=== PATIENT | female | born 1970 | race Two or more races ===

== ENCOUNTER 2022-04-12 12:31 | Emergency (ER) | payer MEDICARE, MEDICAID, SELFPAY ==
--- NOTE | ~2022-04-12 | CT_ITS ---
EXAMINATION: CT CHEST WITH IV CONTRAST CT ABDOMEN AND PELVIS WITH IV CONTRAST CLINICAL INFORMATION: 51-year-old female with history of weight loss and night sweats. COMPARISON: None TECHNIQUE: Multidetector CT imaging examination of the chest, abdomen and pelvis was performed with intravenous administration of 85 mL Omnipaque 350. Axial images are displayed at 0.6 mm and 5 mm slice thickness. Oral contrast was given. Coronal and sagittal reformatted images were generated at the technologist's workstation and submitted for review. This CT examination was performed using dose optimization techniques as appropriate, variously including the following: *Automated exposure control *Adjustment of mA and/or kV according to patient size (this includes techniques or standardized protocols for targeted exams where dose is matched to indication/reason for exam; i.e. extremities or head) *Use of iterative reconstruction technique DLP: 1391 mGy-cm FINDINGS: CHEST - LUNGS AND PLEURA: Minimal centrilobular emphysema. No evidence of pulmonary nodule, mass or interstitial disease. No pleural effusion. MEDIASTINUM/LOWER NECK: The heart size is normal. No pericardial effusion. Pulmonary arteries and thoracic aorta are normal in caliber. There is no coronary artery calcification. The esophagus and thyroid gland are unremarkable. LYMPHATICS: No pathologic sized lymph nodes. CHEST WALL/BONES: No chest wall mass. Thoracic vertebra have normal density, height and alignment. No suspicious osseous lesion within the thorax. ABDOMEN AND PELVIS - HEPATOBILIARY: Liver has normal size and contour. 1.1 cm hypodense focus in the left lobe adjacent to the falciform ligament might represent focal steatosis, however, it has a more rounded configuration than would be expected for steatosis and has attenuation of 40 Hounsfield units. Liver ultrasound follow-up might be helpful for further characterization. There is a small, 0.5 cm simple cyst in the left lobe. Gallbladder is normal. No dilated bile ducts. PANCREAS: No edema, mass or pancreatic ductal dilatation. SPLEEN: Normal. ADRENAL GLANDS: Normal. KIDNEYS AND URETERS: Kidneys are normal in size. 0.3 cm calyceal stone of the right lower pole. No hydronephrosis. 2.5 cm simple cortical cyst of the left upper pole. No renal imaging follow-up is recommended for a simple cyst. The ureters are unremarkable. BOWEL AND PERITONEUM: No dilated loops of bowel. The appendix is normal. No overt bowel wall thickening. No mesenteric fat stranding, ascites or pneumoperitoneum. ABDOMINAL WALL: Unremarkable. VESSELS: Mild atherosclerosis of the abdominal aorta without aneurysm. LYMPH NODES: No pathologic sized lymph nodes in the abdomen or pelvis. No inguinal lymphadenopathy. BLADDER AND PELVIC VISCERA: Urinary bladder is normal. Hysterectomy. No adnexal mass or pelvic free fluid. Multiple phleboliths are present within the lower pelvis. MUSCULOSKELETAL: Lumbar vertebra have normal density, height and alignment. Pelvic bones and proximal femurs are intact. No suspicious lytic or osteoblastic lesions. CT/CT abdomen pelvis w IV con IMPRESSION: * No evidence of pulmonary mass. No evidence of lymphadenopathy in the chest, abdomen or pelvis. * Indeterminate 1.1 cm hypodense focus in the left hepatic lobe is seen adjacent to the falciform ligament. This is likely benign, but is not a simple liver cyst and is not convincing focal steatosis. Liver ultrasound follow-up might be helpful further characterization. However, if unable to characterize with ultrasound, a dynamic liver MRI performed without and with IV contrast may be pursued in this patient with history of weight loss. * 0.3 cm stone of the lower pole of the right kidney.
--- NOTE | ~2022-04-12 | CT_ITS ---
EXAMINATION: CT HEAD WITHOUT CONTRAST CLINICAL INFORMATION: Weight loss and night sweats. Dizziness. COMPARISON: None TECHNIQUE: Contiguous axial imaging was performed from the skull base to vertex without intravenous administration of contrast. This CT examination was performed using dose optimization techniques as appropriate, variously including the following: *Automated exposure control *Adjustment of mA and/or kV according to patient size (this includes techniques or standardized protocols for targeted exams where dose is matched to indication/reason for exam; i.e. extremities or head) *Use of iterative reconstruction technique DLP: 1391 mGy-cm (total dose, for CT exams of the head, chest, abdomen and pelvis) FINDINGS: The brain parenchyma has normal attenuation. The burgess-white matter differentiation is well preserved. No evidence of an acute major vascular territory infarction. No intracranial hemorrhage, extra-axial fluid collection, focal mass effect or midline shift. The ventricles have normal size and configuration; no hydrocephalus. The brainstem and cerebellum have a normal appearance. The cerebellar tonsils are in normal position. The calvarium is intact. The visualized paranasal sinuses, mastoid air cells and middle ear cavities are well aerated. The orbits and globes are normal. The temporomandibular joints are normal. CT/CT head/brain wo IV con IMPRESSION: No evidence of intracranial mass, hemorrhage or infarction. No acute intracranial pathology.
[2022-04-12 12:37] VITALS: BP 101/64; PULSE 74; RESP 16; TEMP 37.1; O2SAT 99; BMI 28.1
[2022-04-12 12:39] VITALS: BP 110/80; PULSE 61; O2SAT 96
--- NOTE | 2022-04-12 13:25 | ED.GENADULT ---
HPI - General Adult General Chief complaint: General Medical Stated complaint: HYPOTENSION Time Seen by Provider: 04/12/22 12:35 Source: patient, EMS and old records reviewed Mode of arrival: EMS Limitations: no limitations History of Present Illness HPI narrative: 51 yo female presents to the ER via EMS from her PCP office with reports of hypotension. Patient was recently hospitalized overnight at [facility] for hypotension 80/50's associated with UTI. She was treated with IVF and Rocephin. Patient reports today's PCP visit was follow-up for this hospitalization. She arrived to her PCP office today and had blood pressure is 90s/50s. She had no associated symptoms at the time. She states she feels like something is wrong but she does not know what. She states she has lost 50 lb since the summertime without trying to. She also reports drenching night sweats for the last 4-6 weeks. She recently had labs done at [facility] that were unremarkable. She states she has not had CT scan in many years. She states she is up-to-date on her colonoscopy. She states she intermittently has dizziness and generalized weakness along with fatigue. Symptoms are worse with exertion. No chest pain or shortness of breath. MD complaint: Intermittent dizziness with exertion, soft blood pressure Onset (ago): week(s) Severity: mild Pain Consistency: intermittent Relieving factors: rest Exacerbating factors: movement Associated symptoms: diaphoresis, malaise and weakness Treatments prior to arrival: none Related Data Allergies Allergy/AdvReac Type Severity Reaction Status Date / Time Penicillins Allergy Hives Verified 04/12/22 12:41 Review of Systems Review of Systems: Yes all other systems are reviewed and are negative [facility] Social History Social History Advance Directives: No Advance Directives Information Provided: Yes Physical Exam ED Vital Signs: Vital Signs - 24 hr 04/12/22 12:37 04/12/22 15:08 04/12/22 15:09 Temperature 98.7 F Pulse Rate 74 70 74 Respiratory Rate 16 Blood Pressure 101/64 104/63 109/65 Pulse Oximetry 99 Oxygen Delivery Method Room Air 04/12/22 15:10 Temperature Pulse Rate 81 Respiratory Rate Blood Pressure 105/60 Pulse Oximetry Oxygen Delivery Method BMI result Body Mass Index 28.1 Appearance: Alert. Oriented X3. No acute distress. Eyes: Pupils equal, round and reactive to light. ENT: Pharynx normal. Neck: Normal inspection. Neck supple. CVS: Normal heart rate and rhythm. Pulses normal. Respiratory: No respiratory distress. Breath sounds normal. Abdomen: Soft and nontender. +BS x4 Skin: Skin warm and dry. Normal skin color. Normal skin turgor. No rashes. Extremities: No lower extremity edema. Neuro: Oriented X 3. No motor deficit. No sensory deficit. CN II-XII intact. Normal speech and cognition. steady gait. Nonfocal. Course Course Course Narrative: 51 yo female presenting to the ER with low blood pressure. She rides to the ER with a normal blood pressure. She appears well, nontoxic. She does report positional dizziness, generalized fatigue for the last several weeks to months. This is in addition to weight loss and drenching night sweats. Concern for underlying malignancy. Will get CT scans and lab workup for further evaluation. Reevaluation(s) Reevaluation #1: Lab workup was unremarkable. Urinalysis with microscopic hematuria, no evidence of overt infection. CT scan showing no pathologic lymphadenopathy, no masses concerning for malignancy. patient was given the results. She would like to go home. She will follow-up with her PCP. BP has been stable during ER stay. Comfortable DC with outpatient follow-up. Medications Administered Discontinued Medications Generic Name Dose Route Start Last Admin Trade Name Freq PRN Reason Stop Dose Admin Iohexol 85 ml 04/12/22 14:45 04/12/22 14:46 Iohexol 350 Mg/Ml 100 Ml Infus..Btl IV 04/12/22 14:46 85 ml ONCE ONE Administration Medical Decision Making Differential Diagnosis Differential Diagnoses: The differential diagnosis associated with the presentation includes Lymphoma, leukemia, cancer, Lab Data MDM Lab Attestation statement: I reviewed the patient's lab results. Independently reviewed lab workup, microcytosis with normal hematocrit. No leukocytosis or leukopenia. Platelets are within normal range. Her metabolic panel does not have any significant metabolic derangements. Result Diagrams: 04/12/22 13:22 04/12/22 13:22 Labs: Lab Results 04/12/22 04/12/22 04/12/22 Range/Units 13:22 13:22 13:22 WBC 5.6 (4.8-10.8) X10*3/uL RBC 5.34 (4.20-5.50) X10*6/uL Hgb 11.8 L (12.0-16.0) g/dl Hct 38.1 (37.0-47.0) % MCV 71.3 L (80.0-98.0) fL MCH 22.1 L (27.0-33.0) pg MCHC 31.0 (31.0-35.0) g/dl RDW 15.8 (11.0-16.0) % Plt Count 257 (160-400) X10*3/uL MPV 9.4 (9.4-12.3) fL Immature Gran % (Auto) 0.2 (0.0-0.4) % Neut % (Auto) 51.3 (45-73) % Lymph % (Auto) 39.0 (20-40) % [place] % (Auto) 7.5 (2-11) % Eos % (Auto) 1.6 (0-4) % Baso % (Auto) 0.4 (0-2) % Lymph # (Auto) 2.2 (1.2-4.9) X10*3/uL [place] # (Auto) 0.4 (0.1-1.2) X10*3/uL Eos # (Auto) 0.1 (0.0-0.4) X10*3/uL Baso # (Auto) 0.0 (0.0-0.2) X10*3/uL Abs Immat Gran (auto) 0.01 (0.00-0.03) X10*3/uL Absolute Neuts (auto) 2.9 (2.0-8.3) x10*3/uL Absolute Nucleated RBC 0.000 (0.0-0.012) X10*3/uL Nucleated RBC % (auto) 0.0 (0.0-0.2) /100WBC ESR 13 (0-20) MM/HR Sodium 141 (135-145) mmol/L Potassium 4.1 (3.3-5.1) mmol/L Chloride 105 (96-108) mmol/L Carbon Dioxide 29 (22-29) mmol/L Anion Gap 11 L (12-20) BUN 22 H (9-16) mg/dL Creatinine 0.81 (0.5-1.4) mg/dL Estim Creat Clear Calc 74.4 Estimated GFR > 60 Random Glucose 82 (60-115) mg/dL Calcium 10.2 (8.4-10.2) mg/dL Magnesium 2.3 (1.6-2.6) mg/dL Total Bilirubin 0.5 (0.0-1.0) mg/dL Direct Bilirubin 0.2 (0.0-0.5) mg/dL AST 11 (5-31) U/L ALT 8 (0-31) U/L Alkaline Phosphatase 67 (39-117) U/L C-Reactive Protein < 0.10 (< or = 0.50) mg/dL Total Protein 7.1 (6.5-8.0) g/dL Albumin 4.5 (3.5-5.0) g/dL TSH (0.32-4.0) uIU/mL Urine Color Urine Appearance Urine pH (5.0-9.0) Ur Specific [place] (1.005-1.025) Urine Protein (Neg-Trace) mg/dL Urine Glucose (UA) (Negative) mg/dL Urine Ketones (Negative) mg/dL Urine Blood (Negative) Urine Nitrite (Negative) Ur Leukocyte Esterase (Negative) Urine RBC (0-2) /HPF Urine WBC (0-5) /HPF Ur Squamous Epith Cells (0-2) /HPF Calcium Oxalate Crystal Urine Bacteria (None Seen) Hyaline Casts (0-2) /LPF 04/12/22 04/12/22 Range/Units 13:22 13:22 WBC (4.8-10.8) X10*3/uL RBC (4.20-5.50) X10*6/uL Hgb (12.0-16.0) g/dl Hct (37.0-47.0) % MCV (80.0-98.0) fL MCH (27.0-33.0) pg MCHC (31.0-35.0) g/dl RDW (11.0-16.0) % Plt Count (160-400) X10*3/uL MPV (9.4-12.3) fL Immature Gran % (Auto) (0.0-0.4) % Neut % (Auto) (45-73) % Lymph % (Auto) (20-40) % [place] % (Auto) (2-11) % Eos % (Auto) (0-4) % Baso % (Auto) (0-2) % Lymph # (Auto) (1.2-4.9) X10*3/uL [place] # (Auto) (0.1-1.2) X10*3/uL Eos # (Auto) (0.0-0.4) X10*3/uL Baso # (Auto) (0.0-0.2) X10*3/uL Abs Immat Gran (auto) (0.00-0.03) X10*3/uL Absolute Neuts (auto) (2.0-8.3) x10*3/uL Absolute Nucleated RBC (0.0-0.012) X10*3/uL Nucleated RBC % (auto) (0.0-0.2) /100WBC ESR (0-20) MM/HR Sodium (135-145) mmol/L Potassium (3.3-5.1) mmol/L Chloride (96-108) mmol/L Carbon Dioxide (22-29) mmol/L Anion Gap (12-20) BUN (9-16) mg/dL Creatinine (0.5-1.4) mg/dL Estim Creat Clear Calc Estimated GFR Random Glucose (60-115) mg/dL Calcium (8.4-10.2) mg/dL Magnesium (1.6-2.6) mg/dL Total Bilirubin (0.0-1.0) mg/dL Direct Bilirubin (0.0-0.5) mg/dL AST (5-31) U/L ALT (0-31) U/L Alkaline Phosphatase (39-117) U/L C-Reactive Protein (< or = 0.50) mg/dL Total Protein (6.5-8.0) g/dL Albumin (3.5-5.0) g/dL TSH 0.57 (0.32-4.0) uIU/mL Urine Color Dark Yellow Urine Appearance Cloudy Urine pH 5.5 (5.0-9.0) Ur Specific [place] >= 1.030 H (1.005-1.025) Urine Protein Trace (Neg-Trace) mg/dL Urine Glucose (UA) Negative (Negative) mg/dL Urine Ketones Trace (Negative) mg/dL Urine Blood Negative (Negative) Urine Nitrite Negative (Negative) Ur Leukocyte Esterase Trace H (Negative) Urine RBC 3-5 H (0-2) /HPF Urine WBC 0-5 (0-5) /HPF Ur Squamous Epith Cells 6-10 (0-2) /HPF Calcium Oxalate Crystal Present Urine Bacteria Trace (None Seen) Hyaline Casts 0-2 (0-2) /LPF Independent Interpretation I performed an independent interpretation of an: CT Scan Interpretation: CT scans reviewed, no concerning lymphadenopathy or solid masses concerning for malignancy. Radiology Impression Discussion of test interpretation with radiology: I have reviewed the radiologist's reading. Radiologist Impression: IMPRESSION: *? No evidence of pulmonary mass. No evidence of lymphadenopathy in the chest, abdomen or pelvis. *? Indeterminate 1.1 cm hypodense focus in the left hepatic lobe is seen adjacent to the falciform ligament. This is likely benign, but is not a simple liver cyst and is not convincing focal steatosis. Liver ultrasound follow-up might be helpful further characterization. However, if unable to characterize with ultrasound, a dynamic liver MRI performed without and with IV contrast may be pursued in this patient with history of weight loss. *? 0.3 cm stone of the lower pole of the right kidney. External Record Review External record reviewed: Office record, Outpatient record, Primary care record and Outside ED record Patient had normal lab workup during her hospitalization [facility] Critical Care Time Critical Care Time Critical Care Time: No Discharge Plan Discharge Clinical Impression: Hypotension Patient Disposition: Home, Self-Care Instructions: Hypotension (ED) Additional Instructions: Your blood pressure has been normal while in the emergency department. Your lab workup was unremarkable. Your CT scan showed the following. *? No evidence of pulmonary mass. No evidence of lymphadenopathy in the chest, abdomen or pelvis. *? Indeterminate 1.1 cm hypodense focus in the left hepatic lobe is seen adjacent to the falciform ligament. This is likely benign, but is not a simple liver cyst and is not convincing focal steatosis. Liver ultrasound follow-up might be helpful further characterization. However, if unable to characterize with ultrasound, a dynamic liver MRI performed without and with IV contrast may be pursued in this patient with history of weight loss. *? 0.3 cm stone of the lower pole of the right kidney. Rest and stay hydrated. Make sure drinking plenty of water. Follow-up with primary care doctor for further management. If you develop new or worsening symptoms call 911 or come back to the ER for further evaluation. Interventions: ED Discharge Assessment Last Done: 04/12/22 17:02 Discharge Date/Time: 04/12/22 17:02
[2022-04-12 13:27] LABS: MANUAL DIFF FLAG NO
[2022-04-12 13:30] LABS: Basophils Percent Auto 0.4 % (0-2); Eosinophils Absolute Auto 0.1 X10*3/uL (0.0-0.4); Eosinophils Percent Auto 1.6 % (0-4); Hematocrit 38.1 % (37.0-47.0); Hemoglobin 11.8 g/dl (12.0-16.0); Imm Gran Abs Auto 0.01 X10*3/uL (0.00-0.03); Imm Gran Pct Auto 0.2 % (0.0-0.4); Lymphocytes Absolute Auto 2.2 X10*3/uL (1.2-4.9); Mean Corpuscular Hemoglobin 22.1 pg (27.0-33.0); Mean Corpuscular Volume 71.3 fL (80.0-98.0); Mean Platelet Volume 9.4 fL (9.4-12.3); Monocytes Absolute Auto 0.4 X10*3/uL (0.1-1.2); Monocytes Percent Auto 7.5 % (2-11); Neutrophils Absolute Auto 2.9 x10*3/uL (2.0-8.3); Neutrophils Percent Auto 51.3 % (45-73); Platelet Count 257 X10*3/uL (160-400); Red Blood Count 5.34 X10*6/uL (4.20-5.50); Red Cell Distribution Width 15.8 % (11.0-16.0); White Blood Count 5.6 X10*3/uL (4.8-10.8)
[2022-04-12 13:31] LABS: Appearance Urine Cloudy; Color Urine Dark Yellow; Glucose Urine UA Negative (Negative); Leukocyte Esterase Urine Trace (Negative); Nitrite Urine Negative (Negative); PH 5.5 (5.0-9.0); Specific Gravity - Urine >= 1.030 (1.005-1.025); UMIC TRIGGER UACC YES; Urine Blood Negative (Negative); Urine Ketones Trace mg/dL (Negative); Urine Protein Trace mg/dL (Neg-Trace)
[2022-04-12 13:40] LABS: Bacteria Urine Trace (None Seen); Calcium Oxalate Crystals Urine Present; Hyaline Casts Urine 0-2 /LPF (0-2); WBC Urine 0-5 /HPF (0-5)
[2022-04-12 14:02] LABS: Alanine Aminotransferase 8 U/L (0-31); Albumin Level 4.5 g/dL (3.5-5.0); Alkaline Phosphatase 67 U/L (39-117); Anion Gap 11 (12-20); Aspartate Amino Transferase 11 U/L (5-31); Bilirubin Direct 0.2 mg/dL (0.0-0.5); Bilirubin Total 0.5 mg/dL (0.0-1.0); Blood Urea Nitrogen 22 mg/dL (9-16); C Reactive Protein < 0.10 mg/dL (< or = 0.50); Calcium 10.2 mg/dL (8.4-10.2); Carbon Dioxide 29 mmol/L (22-29); Chloride 105 mmol/L (96-108); Creatinine Clr Calc Pharmacy 74.4; Estimated Glomerular Filt Rate > 60; Glucose Random 82 mg/dL (60-115); Magnesium 2.3 mg/dL (1.6-2.6); Potassium 4.1 mmol/L (3.3-5.1); Sodium 141 mmol/L (135-145); Total Protein 7.1 g/dL (6.5-8.0)
[2022-04-12 14:08] LABS: Erythrocyte Sedimentation Rate 13 MM/HR (0-20)
[2022-04-12 14:25] LABS: TSH reflex Free T4 0.57 uIU/mL (0.32-4.0)
[2022-04-12] MEDS: iohexoL 350 MG/ML 100 ML INFUS..BTL 85 ML IV (14:46)
[2022-04-12 15:08] VITALS: BP 104/63; PULSE 70
[2022-04-12 15:09] VITALS: BP 109/65; PULSE 74
[2022-04-12 15:10] VITALS: BP 105/60; PULSE 81
== END 2022-04-12 17:02 | disposition home or self-care (01) ==
PROVIDERS: Physician Assistant; Emergency Provider Emergency Medicine Emergency Medical Services; PCP Internal Medicine
DX: I95.9 Hypotension, unspecified (principal); R31.29 Other microscopic hematuria
CPT/HCPCS: 36415; 70450; 71260; 74177; 80048; 80076; 81001; 83735; 84443; 85025; 85652; 86140; 99283; 99284; Q9967

== ENCOUNTER 2022-05-20 09:39 | Emergency (ER) | payer MEDICARE, MEDICAID, SELFPAY ==
--- NOTE | ~2022-05-20 | CT_ITS ---
EXAMINATION: CT ABDOMEN AND PELVIS WITHOUT CONTRAST CLINICAL INFORMATION: Abdominal pain. COMPARISON: None TECHNIQUE: Multidetector volumetric imaging was performed from the superior aspect of the liver through the pubic symphysis. Sagittal and coronal reformatted images were obtained on the technologist's workstation. This CT examination was performed using dose optimization techniques as appropriate, variously including the following: *Automated exposure control *Adjustment of mA and/or kV according to patient size (this includes techniques or standardized protocols for targeted exams where dose is matched to indication/reason for exam; i.e. extremities or head) *Use of iterative reconstruction technique DLP: 520 mGy-cm FINDINGS: LUNG BASES: The visualized lung bases are unremarkable. LIVER, GALLBLADDER, AND BILIARY TREE: The liver is normal in size, shape, and attenuation. Focal hypodensity adjacent to the falciform ligament is unchanged which could represent focal steatosis. No new focal hepatic lesion or biliary ductal dilatation is present. The gallbladder is unremarkable with no evidence of radiopaque gallstones, gallbladder wall thickening, or obvious pericholecystic inflammatory changes. PANCREAS: Unremarkable. SPLEEN: Unremarkable. ADRENAL GLANDS: Unremarkable. KIDNEYS AND URETERS: The kidneys are normal in size, shape, and attenuation. Redemonstration of a 0.2 cm right lower pole renal stone. No new renal or ureteral stone. No hydronephrosis or hydroureter. No perinephric stranding. BLADDER: Unremarkable. Multiple pelvic phleboliths are redemonstrated. GASTROINTESTINAL TRACT: Mild stool burden, increased when compared to the prior examination. No small or large bowel traction. No bowel wall thickening or associated inflammatory change. Hyperdensity redemonstrated within the appendix, which could indicate appendicolith. No associated inflammatory change. No evidence of acute appendicitis. PERITONEAL CAVITY: No intra-abdominal free air or free fluid. No intra-abdominal mass or organized fluid collection/abscess formation. ABDOMINAL WALL: No significant hernia is appreciated. LYMPH NODES: No significant lymphadenopathy. VASCULAR: Unremarkable. PELVIC VISCERA: Multiple pelvic lymph nodes are redemonstrated. Probable hysterectomy. No mass or fluid collection. OSSEOUS STRUCTURES: Unremarkable. CT/CT abdomen pelvis wo IV con IMPRESSION: Mild stool burden, increased when compared to the prior examination. No small or large bowel obstruction. No bowel wall thickening or fat or change. Appendicolith without evidence of acute appendicitis. Additional chronic findings are unchanged. Fleischner guidelines were followed.
[2022-05-20 09:53] VITALS: BP 103/64; PULSE 82; RESP 16; TEMP 36.7; O2SAT 99; BMI 28.7
--- NOTE | 2022-05-20 10:39 | ED_ITS ---
HPI - General Adult General Chief complaint: Extremity Problem Stated complaint: leg pain x3 days Time Seen by Provider: 05/20/22 10:38 Source: patient Mode of arrival: ambulatory Limitations: no limitations History of Present Illness HPI narrative: Patient is a 51 year old assigned female at with no reported medical history presenting to the emergency department today with left sided abdominal pain. Patient states that she has left lower quadrant abdominal pain that radiates into her left upper leg. Patient denies any dizziness, lightheadedness, nausea, vomiting, fever, chills, blurry vision, double vision, loss of vision, chest pain, difficulty breathing, shortness of breath, back pain, night sweats, pain with urination, increased urinary frequency, increased urinary urgency, blood in her urine or stool, syncope or a near syncopal episode, recent trauma or falls, bowel incontinence, bladder incontinence, bowel retention, bladder retention, or any other complaints at this time. Onset (ago): day(s) (3) Location: abdomen Radiation: distal Severity: mild Severity scale (1-10): 2 Pain Consistency: intermittent Relieving factors: none Exacerbating factors: none Associated symptoms: denies other symptoms Treatments prior to arrival: none Related Data Allergies Allergy/AdvReac Type Severity Reaction Status Date / Time Penicillins Allergy Hives Verified 04/12/22 12:41 Review of Systems Constitutional: Constitutional: Reports no additional constitutional complaints, Denies chills, Denies fever(s) and Denies night sweats Eyes: Eyes: Reports no additional eye complaints, Denies blurry vision, Denies change in vision, Denies diplopia, Denies eye discharge, Denies loss of vision and Denies eye pain ENT: Denies dizziness Cardiovascular: Cardiovascular: Reports no additional cardiovascular complaints, Denies chest pain, Denies lightheadedness, Denies Loss of Consciousness and Denies dyspnea Respiratory: Respiratory: Reports no additional respiratory complaints and Denies dyspnea Gastrointestinal: Gastrointestinal: Reports no additional gastrointestinal complaints, Reports abdominal pain, Denies melena, Denies hematochezia, Denies change in bowel habits and Denies change in stool character Genitourinary: Genitourinary: Denies hematuria, Denies urinary frequency, Denies dysuria, Denies urinary incontinence, Denies urinary hesitancy and Denies urinary urgency Musculoskeletal: Musculoskeletal: Reports no additional musculoskeletal complaints, Denies numbness and Denies tingling Neurologic: Denies dizziness, Denies loss of vision, Denies numbness and Denies tingling Psychiatric: Psychiatric: Reports no additional psychiatric complaints Endocrine: Endocrine: Reports no additional endocrine complaints Hematologic/Lymphatic: Hematologic/Lymphatic: Reports no additional hematologic/lymphatic complaints Allergic/Immunologic: Allergic/Immunologic: Reports no additional allergic/im munologic complaints [facility] Past Medical History Attestation statement: The following information was validated with the patient. Source: old records reviewed and nursing notes reviewed Social History Social History Advance Directives: No Advance Directives Information Provided: No Physical Exam ED Vital Signs: Vital Signs - 24 hr 05/20/22 09:53 Temperature 98.1 F Pulse Rate 82 Respiratory Rate 16 Blood Pressure 103/64 Pulse Oximetry 99 Oxygen Delivery Method Room Air BMI result Body Mass Index 28.7 Const General: cooperative, no acute distress, alert and awake Nutritional Appearance: well nourished Orientation/consciousness: patient oriented x3 Limitations: no limitations HENMT Head: Yes normal to inspection and Yes atraumatic Ears: hearing grossly normal bilaterally and external ears normal General nose exam: Normal external nose present, no nasal discharge noted and no epistaxis Face and sinus: Yes normal facial exam, No abrasion and No laceration Mouth: Normal oral and palatal mucosa present, no drooling and no muffled voice Eyes General: appearance normal, both eyes and all related structures Periorbital: periorbital findings normal Eyelids: Yes eyelids normal Conjunctivae: conjunctivae normal Pupils: Equal, round and reactive pupils present EOM: EOMs intact bilaterally Neck Neck: Yes normal visual inspection, Yes full ROM and Yes no lymphadenopathy Chest Chest palpation & inspection: normal inspection of the chest Resp Effort & Inspection: normal respiratory effort and able to speak in complete sentences Auscultation: clear to auscultation bilaterally Cardio Rate: regular rate Rhythm: regular rhythm GI Inspection: Yes normal to inspection Palpation (GI): Soft to palpation, not firm, Tenderness to palpation present (GI) in the LLQ, no guarding and not rigid Neuro General: patient oriented x3 and moves all extremities Cranial nerves: Yes Equal, round and reactive pupils present Cognition (Neuro): normal cognition Motor exam (neuro): 5/5 motor strength present throughout Sensory Exam: Normal double simultaneous stimulation for sensation Coordination: [id number] test normal Extrem General: Yes normal to inspection, Yes full ROM and Yes capillary refill normal Psych Appearance: grossly normal Mental Status: mental status grossly normal Affect: normal affect Attitude: cooperative Thought process: Normal thought process present Thought content: Normal thought content present Insight: Good insight present (Psych) Medications Administered Discontinued Medications Generic Name Dose Route Start Last Admin Trade Name Mac PRN Reason Stop Dose Admin Ketorolac Tromethamine 15 mg 05/20/22 10:48 05/20/22 11:13 Ketorolac Tromethamine 15 Mg/Ml Vial IM 05/20/22 10:49 15 mg ONCE ONE Administration Oxycodone HCl 10 mg 05/20/22 12:31 05/20/22 12:38 Oxycodone Hcl Immed Release 5 Mg Tablet PO 05/20/22 12:32 10 mg ONCE ONE Administration Medical Decision Making Medical Decision Making [facility] Narrative: Patient is a 51 year old assigned female at with no reported medical history presenting to the emergency department today with left lower abdominal pain. Patient's physical exam showed left lower quadrant abdominal pain. Patient's blood work was unremarkable. Patient's urine showed no acute process. Patient's abdomen/pelvis CT showed moderate stool burden but was otherwise unremarkable. I explained my physical exam findings as well as all test results to the patient. I answered all questions asked by the patient. I stressed the importance of the patient taking her medication as prescribed. I stressed the importance of the patient following up with her primary care provider. I stressed the importance of the patient returning to the emergency department immediately if her symptoms were to worsen or if she were to develop any dizziness, shortness of breath, difficulty breathing, chest pain, blurry vision, loss of vision, nausea, vomiting, abdominal pain, fever, chills, back pain, or any other complaints. Patient verbalized agreement and understanding with this treatment plan and discharge. Differential Diagnosis Differential Diagnoses: The differential diagnosis associated with the presentation includes Abdominal pain, constipation Lab Data [facility] Lab Attestation statement: I reviewed the patient's lab results. 05/20/22 11:12 05/20/22 11:12 Labs: Lab Results 05/20/22 05/20/22 Range/Units 11:12 11:12 WBC 4.5 L (4.8-10.8) X10*3/uL RBC 5.08 (4.20-5.50) X10*6/uL Hgb 11.3 L (12.0-16.0) g/dl Hct 36.4 L (37.0-47.0) % MCV 71.7 L (80.0-98.0) fL MCH 22.2 L (27.0-33.0) pg MCHC 31.0 (31.0-35.0) g/dl RDW 15.4 (11.0-16.0) % Plt Count 254 (160-400) X10*3/uL MPV 8.9 L (9.4-12.3) fL Immature Gran % (Auto) 0.2 (0.0-0.4) % Neut % (Auto) 35.4 L (45-73) % Lymph % (Auto) 55.2 H (20-40) % [place] % (Auto) 7.0 (2-11) % Eos % (Auto) 1.8 (0-4) % Baso % (Auto) 0.4 (0-2) % Lymph # (Auto) 2.5 (1.2-4.9) X10*3/uL [place] # (Auto) 0.3 (0.1-1.2) X10*3/uL Eos # (Auto) 0.1 (0.0-0.4) X10*3/uL Baso # (Auto) 0.0 (0.0-0.2) X10*3/uL Abs Immat Gran (auto) 0.01 (0.00-0.03) X10*3/uL Absolute Neuts (auto) 1.6 L (2.0-8.3) x10*3/uL Absolute Nucleated RBC 0.000 (0.0-0.012) X10*3/uL Nucleated RBC % (auto) 0.0 (0.0-0.2) /100WBC Sodium 142 (135-145) mmol/L Potassium 4.1 (3.3-5.1) mmol/L Chloride 106 (96-108) mmol/L Carbon Dioxide 30 H (22-29) mmol/L Anion Gap 10 L (12-20) BUN 20 H (9-16) mg/dL Creatinine 0.78 (0.5-1.4) mg/dL Estim Creat Clear Calc 77.9 Estimated GFR > 60 Random Glucose 87 (60-115) mg/dL Calcium 9.6 (8.4-10.2) mg/dL Total Bilirubin 0.5 (0.0-1.0) mg/dL AST 12 (5-31) U/L ALT 9 (0-31) U/L Alkaline Phosphatase 66 (39-117) U/L Total Protein 6.7 (6.5-8.0) g/dL Albumin 4.3 (3.5-5.0) g/dL Radiology Impression Radiologist Impression: My interpretation is in agreement with the radiologist's impression of this imaging study. - EXAMINATION: CT ABDOMEN AND PELVIS WITHOUT CONTRAST? CLINICAL INFORMATION: Abdominal pain.? COMPARISON: None? TECHNIQUE: Multidetector volumetric imaging was performed from the superior aspect of the liver through the pubic symphysis. Sagittal and coronal reformatted images were obtained on the technologist's workstation.? This CT examination was performed using dose optimization techniques as appropriate, variously including the following: *Automated exposure control *Adjustment of mA and/or kV according to patient size (this includes techniques or standardized protocols for targeted exams where dose is matched to indication/reason for exam; i.e. extremities or head) *Use of iterative reconstruction technique DLP: 520 mGy-cm FINDINGS: LUNG BASES: The visualized lung bases are unremarkable.? LIVER, GALLBLADDER, AND BILIARY TREE: The liver is normal in size, shape, and attenuation. Focal hypodensity adjacent to the falciform ligament is unchanged which could represent focal steatosis. No new focal hepatic lesion or biliary ductal dilatation is present. The gallbladder is unremarkable with no evidence of radiopaque gallstones, gallbladder wall thickening, or obvious pericholecystic inflammatory changes.? PANCREAS: Unremarkable.? SPLEEN: Unremarkable.? ADRENAL GLANDS: Unremarkable.? KIDNEYS AND URETERS: The kidneys are normal in size, shape, and attenuation. Redemonstration of a 0.2 cm right lower pole renal stone. No new renal or ureteral stone. No hydronephrosis or hydroureter. No perinephric stranding. ? BLADDER: Unremarkable. Multiple pelvic phleboliths are redemonstrated. GASTROINTESTINAL TRACT: Mild stool burden, increased when compared to the prior examination. No small or large bowel traction. No bowel wall thickening or associated inflammatory change. Hyperdensity redemonstrated within the appendix, which could indicate appendicolith. No associated inflammatory change. No evidence of acute appendicitis. PERITONEAL CAVITY: No intra-abdominal free air or free fluid. No intra-abdominal mass or organized fluid collection/abscess formation.? ABDOMINAL WALL: No significant hernia is appreciated.? LYMPH NODES: No significant lymphadenopathy. VASCULAR: Unremarkable. PELVIC VISCERA: Multiple pelvic lymph nodes are redemonstrated. Probable hysterectomy. No mass or fluid collection.? OSSEOUS STRUCTURES: Unremarkable.? CT/CT abdomen pelvis wo IV con IMPRESSION: Mild stool burden, increased when compared to the prior examination. No small or large bowel obstruction. No bowel wall thickening or fat or change. Appendicolith without evidence of acute appendicitis. ? Additional chronic findings are unchanged. ? Fleischner guidelines were followed. Dictated By: Hira Mejia MD Signed By: Electronically signed by Hira Mejia MD 05/20/22 1216 Discharge Plan Discharge Clinical Impression: Abdominal pain Patient Disposition: Home, Self-Care Instructions: Abdominal Pain (ED) Additional Instructions: Follow up with your primary care provider. Return to the emergency department immediately if your symptoms worsen or if you develop any dizziness, shortness of breath, difficulty breathing, chest pain, blurry vision, loss of vision, nausea, vomiting, abdominal pain, fever, chills, back pain, or any other complaints. Referrals: [facility] [Provider Group] (Call to establish and follow up with a primary care provider. If you already have a primary care provider, please follow up with them. ) [facility] [facility]] (Call to establish and follow up with a primary care provider. If you already have a primary care provider, please follow up with them. ) [facility] [facility] [Provider Group] (Call to establish and follow up with a primary care provider. If you already have a primary care provider, please follow up with them. ) Interventions: ED Discharge Assessment Last Done: 05/20/22 12:46 Discharge Date/Time: 05/20/22 12:47 Print Language: Belarusian
[2022-05-20] MEDS: Ketorolac Tromethamine 15 MG/ML VIAL IM (11:13)
[2022-05-20 11:19] LABS: MANUAL DIFF FLAG NO
[2022-05-20 11:21] LABS: Basophils Percent Auto 0.4 % (0-2); Eosinophils Absolute Auto 0.1 X10*3/uL (0.0-0.4); Eosinophils Percent Auto 1.8 % (0-4); Hematocrit 36.4 % (37.0-47.0); Hemoglobin 11.3 g/dl (12.0-16.0); Imm Gran Abs Auto 0.01 X10*3/uL (0.00-0.03); Imm Gran Pct Auto 0.2 % (0.0-0.4); Lymphocytes Absolute Auto 2.5 X10*3/uL (1.2-4.9); Lymphocytes Percent Auto 55.2 % (20-40); Mean Corpuscular Hemoglobin 22.2 pg (27.0-33.0); Mean Corpuscular Volume 71.7 fL (80.0-98.0); Mean Platelet Volume 8.9 fL (9.4-12.3); Monocytes Absolute Auto 0.3 X10*3/uL (0.1-1.2); Neutrophils Absolute Auto 1.6 x10*3/uL (2.0-8.3); Neutrophils Percent Auto 35.4 % (45-73); Platelet Count 254 X10*3/uL (160-400); Red Blood Count 5.08 X10*6/uL (4.20-5.50); Red Cell Distribution Width 15.4 % (11.0-16.0); White Blood Count 4.5 X10*3/uL (4.8-10.8)
[2022-05-20 11:33] LABS: Alanine Aminotransferase 9 U/L (0-31); Albumin Level 4.3 g/dL (3.5-5.0); Alkaline Phosphatase 66 U/L (39-117); Anion Gap 10 (12-20); Aspartate Amino Transferase 12 U/L (5-31); Bilirubin Total 0.5 mg/dL (0.0-1.0); Blood Urea Nitrogen 20 mg/dL (9-16); Calcium 9.6 mg/dL (8.4-10.2); Carbon Dioxide 30 mmol/L (22-29); Chloride 106 mmol/L (96-108); Creatinine Clr Calc Pharmacy 77.9; Estimated Glomerular Filt Rate > 60; Glucose Random 87 mg/dL (60-115); Potassium 4.1 mmol/L (3.3-5.1); Sodium 142 mmol/L (135-145); Total Protein 6.7 g/dL (6.5-8.0)
[2022-05-20] MEDS: oxyCODONE HCl Immed Release 5 MG TABLET 10 MG PO (12:38)
== END 2022-05-20 12:47 | disposition home or self-care (01) ==
PROVIDERS: Physician Assistant Medical; Emergency Provider Student in an Organized Health Care Education/Training Program; PCP Internal Medicine Nephrology
DX: R10.32 Left lower quadrant pain (principal)
CPT/HCPCS: 36415; 74176; 80053; 85025; 96372; 99283; 99284; J1885

== ENCOUNTER 2022-12-26 12:49 | Emergency (ER) | payer MEDICARE, MEDICAID, SELFPAY ==
--- NOTE | ~2022-12-26 | XR_ITS ---
EXAMINATION: XR CHEST CLINICAL INFORMATION: Chest pain. COMPARISON: None available. TECHNIQUE: 2 views of the chest were obtained. FINDINGS: The cardiomediastinal silhouette is normal. There is no focal lung consolidation or pleural effusion. The bony structures and soft tissues are unremarkable. XR/XR chest 2V IMPRESSION: No active cardiopulmonary disease.
--- NOTE | 2022-12-26 13:02 | ECG_ITS ---
Test Reason : chest pain Blood Pressure : / mmHG Vent. Rate : 067 BPM Atrial Rate : 067 BPM P-R Int : 126 ms QRS Dur : 068 ms QT Int : 364 ms P-R-T Axes : 058 034 064 degrees QTc Int : 384 ms Normal sinus rhythm ST elevation in Inferior leads ST elevation in Lateral leads Abnormal ECG No previous ECGs available Referred By: Generic ED Physician Electronically Signed By:NASH BOWLING
--- NOTE | 2022-12-26 13:08 | ED_ITS ---
HPI - Chest Pain General Chief Complaint: Chest Pain Stated Complaint: Chest Pain Since Yesterday Time Seen by Provider: 12/26/22 16:28 Source: patient, RN notes reviewed and old records reviewed Mode of arrival: ambulatory History of Present Illness HPI narrative: 52-year-old female with past medical history HLD, prediabetic, presenting to the ED complaining of intermittent substernal chest pain x months which became constant/ unremitting since last night. Described as dull ache. Also reports generalized fatigue and SOB. Admit saw PCP for this recently and workup was unremarkable. Denies abdominal pain, nausea / vomiting, lightheadedness/ dizziness, numbness/tingling MD complaint: chest pain Related Data Allergies Allergy/AdvReac Type Severity Reaction Status Date / Time Penicillins Allergy Hives Verified 04/12/22 12:41 Review of Systems 2 Review of Systems: Constitutional: No Fever, No Chills ENT/Mouth: No Ear Pain, No Nasal Congestion, No Sinus Pain, No Hoarseness, No sore throat, No Rhinorrhea, No Swallowing Difficulty Cardiovascular: + Chest Pain, + SOB Respiratory: No Cough, No Sputum, No Wheezing Gastrointestinal: No Nausea, No Vomiting, No Abdominal pain Genitourinary: No Dysuria, No Urinary Frequency, No Flank Pain Musculoskeletal: No joint pain, No Myalgias, No Joint Swelling Skin: No Skin Lesions, No rash Neuro: No Weakness, No Numbness, No Paresthesias Yes all other systems are reviewed and are negative Constitutional: Constitutional: Reports as per [facility] Past Medical History Attestation statement: The following information was validated with the patient. Source: old records reviewed Physical Exam 2 Vital Signs: Vital Signs: Last Vital Signs Temp 97.8 F 12/26/22 13:10 Pulse 82 12/26/22 13:10 Resp 18 12/26/22 13:10 BP 121/76 12/26/22 13:10 Pulse Ox 98 12/26/22 13:10 O2 Del Method Room Air 12/26/22 13:10 BMI result Body Mass Index 29.9 Const: General: cooperative, healthy appearing and no acute distress O rientation/consciousness: patient oriented x3 Limitations: no limitations HEENT: Head: Yes normal to inspection and Yes atraumatic Ears: hearing grossly normal bilaterally General nose exam: Normal external nose present Face and sinus: Yes normal facial exam Eyes: General: appearance normal, both eyes and all related structures EOM: EOMs intact bilaterally Neck: Neck: Yes normal visual inspection and Yes no meningeal signs Chest: Chest palpation & inspection: normal inspection of the chest, no crepitus and no tenderness Resp: Effort & Inspection: normal respiratory effort and no respiratory distress Auscultation: clear to auscultation bilaterally, no crackles and no wheezes Cardio: Rate: regular rate Heart sounds: S1 normal heart sound present and S2 normal heart sound present GI: Inspection: Yes normal to inspection Palpation (GI): Soft to palpation, nontender, no guarding and not rigid : General: Yes no CVA tenderness Back/Spine/Pelvis: Back: no CVA tenderness Skin: Rashes: no rashes Wounds: no wounds Neuro: General: patient oriented x3, tone normal and no meningeal signs C ranial nerves: Yes CN's II-XII intact bilaterally Gait exam (Neuro): Normal gait present Extrem: General: Yes normal to inspection, Yes no pedal edema and Yes no calf tenderness Course Course Course Narrative: This is an RME: Additional HPI, ROS, PE not included below will be deferred to primary provider. This is a [id number], with a hx of hyperlipidemia and pre-diabetes, presenting to the emergency department with complaints of chest pain since last night. Describing to a dull pain. Feeling shortness of breath, tired, and headaches. VSS. pt appears comfortable. Plan: Labs, EKG, chest xray, viral swab -[id number]-- no leukocytosis. Labs otherwise reassuring. Troponin negative. CXR unremarkable - viral testing negative recommended cardiology follow-up Results discussed with patient including worrisome signs and symptoms and strict return precautions, and when to return to the emergency department. They verbalized understanding and feel safe for discharge at this time. Medical Decision Making Medical Decision Making MDM Narrative: 52-year-old female with past medical history HLD, prediabetic, presenting to the ED complaining of intermittent substernal chest pain x months which became constant/ unremitting since last night. on exam vital signs stable, NAD, nontoxic appearing, chest pain not reproducible, lungs CTA, no pedal edema/calf tenderness. Concern for ACS vs viral syndrome or pneumonia. Lower suspicion for bronchitis, dissection, PE, DVT plan: EKG, labs, CXR, viral testing Please refer to course for remaining clinical decision making, interpretation of labs/imaging results, and discussions with consultants and/or family members. Differential Diagnosis Differential Diagnoses: The differential diagnosis associated with the presentation includes As above Admission/Observation Consideration of admission/observation: Escalation of care including admission/observation considered Lab Data [facility] Lab Attestation statement: I reviewed the patient's lab results. 12/26/22 14:12 12/26/22 14:12 Labs: Lab Results 12/26/22 12/26/22 Range/Units 13:42 14:12 WBC 5.6 (4.8-10.8) X10*3/uL RBC 5.42 (4.20-5.50) X10*6/uL Hgb 12.3 (12.0-16.0) g/dl Hct 39.0 (37.0-47.0) % MCV 72.0 L (80.0-98.0) fL MCH 22.7 L (27.0-33.0) pg MCHC 31.5 (31.0-35.0) g/dl RDW 15.9 (11.0-16.0) % Plt Count 250 (160-400) X10*3/uL MPV 9.2 L (9.4-12.3) fL Immature Gran % (Auto) 0.2 (0.0-0.4) % Neut % (Auto) 46.2 (45-73) % Lymph % (Auto) 45.1 H (20-40) % Rich % (Auto) 7.2 (2-11) % Eos % (Auto) 0.9 (0-4) % Baso % (Auto) 0.4 (0-2) % Lymph # (Auto) 2.5 (1.2-4.9) X10*3/uL Rich # (Auto) 0.4 (0.1-1.2) X10*3/uL Eos # (Auto) 0.1 (0.0-0.4) X10*3/uL Baso # (Auto) 0.0 (0.0-0.2) X10*3/uL Abs Immat Gran (auto) 0.01 (0.00-0.03) X10*3/uL Absolute Neuts (auto) 2.6 (2.0-8.3) x10*3/uL Absolute Nucleated RBC 0.000 (0.0-0.012) X10*3/uL Nucleated RBC % (auto) 0.0 (0.0-0.2) /100WBC Sodium 141 (135-145) mmol/L Potassium 4.0 (3.3-5.1) mmol/L Chloride 109 H (96-108) mmol/L Carbon Dioxide 25 (22-29) mmol/L Anion Gap 11 L (12-20) BUN 22 H (9-16) mg/dL Creatinine 0.80 (0.5-1.4) mg/dL Estim Creat Clear Calc 76.7 Estimated GFR > 60 Random Glucose 82 (60-115) mg/dL Calcium 10.2 D (8.4-10.2) mg/dL Total Bilirubin 0.4 (0.0-1.0) mg/dL Direct Bilirubin 0.1 (0.0-0.5) mg/dL AST 13 (5-31) U/L ALT 10 (0-31) U/L Alkaline Phosphatase 73 (39-117) U/L Troponin I High Sens < 2.7 (<3.5-17.0) ng/L Total Protein 7.9 (6.5-8.0) g/dL Albumin 4.7 (3.5-5.0) g/dL Influenza Type A (PCR) NEGATIVE (Negative) Influenza Type B (PCR) NEGATIVE (Negative) RSV RNA Qual (PCR) NEGATIVE (Negative) SARS-CoV-2 RNA (RT-PCR) NEGATIVE (Negative) Independent Interpretation I performed an independent interpretation of an: EKG ( EKG normal sinus rhythm at a rate of 67. IL interval 126. No STEMI. Nonischemic) Radiology Impression Discussion of test interpretation with radiology: I have reviewed the radiologist's reading. External Record Review External record reviewed: Inpatient record, Office record, Outpatient record, Prior outpatient labs, Prior outpatient radiology, Primary care record and Outside ED record Tests considered The following testing was considered but not selected: As above Chronic Conditions Patient?s care impacted by: Other (HLD) Discharge Plan Discharge Clinical Impression: Chest pain Patient Disposition: Home, Self-Care Instructions: Chest Pain (DC) Additional Instructions: your blood work and chest xray were reassuring please follow up with your PCP & Cardiology if you develop constant/ unremitting pain/ shortness of breath, lightheadedness or dizziness return to the ED if symptoms persist or worsen return to the emergency department Referrals: [facility] [place] [place] Cardiovascular Services [Provider Group] Marisol Gloria MD [Primary Care Provider] - Stand Alone Forms: Work/School Release Interventions: ED Discharge Assessment Last Done: 12/26/22 18:15 Discharge Date/Time: 12/26/22 18:15
[2022-12-26 13:10] VITALS: BP 121/76; PULSE 82; RESP 18; TEMP 36.6; O2SAT 98; BMI 29.9
[2022-12-26 14:19] LABS: MANUAL DIFF FLAG NO
[2022-12-26 14:21] LABS: Basophils Percent Auto 0.4 % (0-2); Eosinophils Absolute Auto 0.1 X10*3/uL (0.0-0.4); Eosinophils Percent Auto 0.9 % (0-4); Hemoglobin 12.3 g/dl (12.0-16.0); Imm Gran Abs Auto 0.01 X10*3/uL (0.00-0.03); Imm Gran Pct Auto 0.2 % (0.0-0.4); Lymphocytes Absolute Auto 2.5 X10*3/uL (1.2-4.9); Lymphocytes Percent Auto 45.1 % (20-40); Mean Corpuscular HGB Conc 31.5 g/dl (31.0-35.0); Mean Corpuscular Hemoglobin 22.7 pg (27.0-33.0); Mean Platelet Volume 9.2 fL (9.4-12.3); Monocytes Absolute Auto 0.4 X10*3/uL (0.1-1.2); Monocytes Percent Auto 7.2 % (2-11); Neutrophils Absolute Auto 2.6 x10*3/uL (2.0-8.3); Neutrophils Percent Auto 46.2 % (45-73); Platelet Count 250 X10*3/uL (160-400); Red Blood Count 5.42 X10*6/uL (4.20-5.50); Red Cell Distribution Width 15.9 % (11.0-16.0); White Blood Count 5.6 X10*3/uL (4.8-10.8)
[2022-12-26 14:31] LABS: Influenza A PCR NEGATIVE (Negative); Influenza B PCR NEGATIVE (Negative); Resp Syncy Virus RNA Qual PCR NEGATIVE (Negative); SARS COV2 PCR INHOUSE NEGATIVE (Negative)
[2022-12-26 14:35] LABS: Anion Gap 11 (12-20); Blood Urea Nitrogen 22 mg/dL (9-16); Calcium 10.2 mg/dL (8.4-10.2); Carbon Dioxide 25 mmol/L (22-29); Chloride 109 mmol/L (96-108); Creatinine Clr Calc Pharmacy 76.7; Estimated Glomerular Filt Rate > 60; Glucose Random 82 mg/dL (60-115); Sodium 141 mmol/L (135-145)
[2022-12-26 14:59] LABS: Troponin-I High Sensitivity < 2.7 ng/L (<3.5-17.0)
[2022-12-26 15:07] LABS: Alanine Aminotransferase 10 U/L (0-31); Albumin Level 4.7 g/dL (3.5-5.0); Alkaline Phosphatase 73 U/L (39-117); Aspartate Amino Transferase 13 U/L (5-31); Bilirubin Direct 0.1 mg/dL (0.0-0.5); Total Protein 7.9 g/dL (6.5-8.0)
[2022-12-26 15:40] LABS: Bilirubin Total 0.4 mg/dL (0.0-1.0)
--- NOTE | 2022-12-26 16:41 | PC.NURSE ---
pt changed into hospital attire placed on jewelry dipper, nsr on monitor
== END 2022-12-26 18:15 | disposition home or self-care (01) ==
PROVIDERS: Physician Assistant Medical; Emergency Provider Emergency Medicine; PCP Internal Medicine
DX: R07.9 Chest pain, unspecified (principal); R06.02 Shortness of breath; Z20.822 Contact with and (suspected) exposure to COVID-19; Z20.828 Contact with and (suspected) exposure to other viral communicable diseases
CPT/HCPCS: 0241U; 36415; 71046; 80048; 80076; 84484; 85025; 93005; 99283

== ENCOUNTER 2023-01-29 14:18 | Outpatient (AMB) | payer MEDICARE, MEDICAID, SELFPAY ==
--- NOTE | 2023-01-29 14:56 | A.OFFVIS_ITS ---
Intake Vital Signs 01/29/23 14:57 Height 5 ft 2 in Weight 161 lb 6.054 oz BMI 29.5 BP 100/72 Blood Pressure Location Lt brachial Position Sitting Pulse 73 Pulse Source Pulse Oximeter Intake Visit Reasons: [facility] [place] ED fu/chest pain/ Dr. Gloria pcp () [place] [facility] [place]/ Allergies Penicillins Allergy (Verified 01/29/23 14:59) Hives Medication List - Last Reconciled 01/29/23 by Deepika Becerril, RAY-C alprazolam mg PO aripiprazole 5 mg PO DAILY atorvastatin 10 mg PO DAILY bupropion HCl 300 mg PO DAILY montelukast 10 mg PO DAILY pantoprazole 40 mg PO DAILY trazodone 150 mg PO BEDTIME HPI [facility] [place] [facility] ED fu/chest pain/ Dr. Gloria pcp () HPI Details Melissa is a 52-year-old female with past medical history of hyperlipidemia, pre diabetes who was recently seen in the emergency room for chest discomfort. She ruled out for ACS. She was reefed offered to cardiology in follow-up. Today she presents for cardiology consultation. She reports that she gets intermittent stabbing pains to her left chest region which can occur randomly and last up to 10-15 minutes before resolving. She has associated symptom of shortness of breath. No known aggravating or alleviating factors. She has had this symptom for over a year and is increasing in frequency. She did haves evaluation in [place] prior to moving to this area without findings. She tells me that a nuclear stress test was ordered however they could not get an IV on her and it was canceled. She tolerates normal ADLs without concerning symptoms however does report shortness of breath with stair climbing. No palpitations, presyncope, syncope, PND, orthopnea or edema. Describes an episode of syncope that occurred 2 weeks ago when she got up in the night to use the bathroom. She was feeling lightheaded then woke up on the floor. He has not had syncope in the past. Remote history of smoking, no alcohol use. Mother has history of tachycardia. Patient has No known cardiac history. [facility] Family History (Updated 01/30/23 @ 10:57 by Deepika Becerril, RAY-C) Mother Tachycardia Paternal Grandmother No problems noted. Social History Alcohol intake: never Patient Tobacco Use Status: Never used Tobacco Review of Systems Const All systems reviewed & are unremarkable except as noted in HPI and below ENT Denies dizziness Card Reports chest pain, Denies chest pain at rest, Denies chest pain with activity, Denies rapid heart rate, Denies pedal edema, Denies edema, Denies leg edema, Denies lightheadedness, Denies palpitations, Reports dyspnea, Denies dyspnea on exertion and Denies orthopnea Resp Denies cough, Reports dyspnea and Denies dyspnea on exertion GI Denies hematochezia and Denies change in stool character Musc Denies abnormal gait, Denies muscle weakness, Denies numbness, Denies radiating pain into limb, Denies stiffness and Denies tingling Neuro Denies abnormal gait, Denies dizziness, Denies numbness and Denies tingling Endo Denies palpitations Physical Exam Vital Signs: Last Vital Signs Pulse 73 01/29/23 14:57 BP 100/72 01/29/23 14:57 BMI result Body Mass Index 29.5 Const General: cooperative, healthy appearing, comfortable and no acute distress Orientation/consciousness: patient oriented x3 Neck Neck: Yes normal visual inspection Resp Effort & Inspection: normal respiratory effort Auscultation: clear to auscultation bilaterally, no crackles, no rales, no rhonchi and no wheezes Cardio Jugular venous distension: no JVD Rate: regular rate Rhythm: regular rhythm Heart sounds: S1 normal heart sound present, S2 normal heart sound present, no murmurs and no rubs Neuro General: patient oriented x3 Extrem General: Yes normal to inspection Psych Appearance: grossly normal Mental Status: mental status grossly normal Speech and movement: Normal speech and movement present Assessment & Plan Assessment & Plan (1) Chest discomfort: Code(s): R07.89 - Other chest pain Plan: Report of chest discomfort, atypical sounding. Sharp pain that happens randomly with associated shortness of breath, increasing in frequency. No chest discomfort brought on by exertional activity. ER evaluation on 12/26/2022 for this symptom. She ruled out for ACS. EKG showing normal sinus rhythm, no acute ST or T-wave abnormalities. Troponin levels normal. She describes having chest discomfort on and off for over a year. Cardiac risks of hyperlipidemia, pre diabetes and mild obesity. No known cardiac history. She is able to walk on a treadmill. Will order an exercise stress test to evaluate for ischemia. Will order echocardiogram to evaluate for any structural heart disease. Signs and symptoms of angina reviewed. Emergency care if needed for symptoms. Cardiology follow-up in 4-6 weeks, sooner if needed. (2) Shortness of breath: Code(s): R06.02 - Shortness of breath (3) HTN (hypertension): Code(s): I10 - Essential (primary) hypertension Qualifiers: Hypertension type: unspecified Qualified Code(s): I10 - Essential (primary) hypertension Plan: On low side today. She is not on blood pressure lowering agents. (4) Syncope: Code(s): R55 - Syncope and collapse Plan: Patient describes a syncopal event approximally 2 weeks ago. She says she got up out of bed in the night to use the bathroom and found herself on the floor. She was experiencing some lightheadedness prior to the event. She has never had syncope in the past. She did not recall any heart palpitations. Her blood p ressure is on the low side today. Blood pressure when she was in the emergency room was normal range. Echocardiogram as above. Holter monitor will be ordered to evaluate for any arrhythmia. Her event was most likely related to orthostatic hypotension which occurred after getting from laying down position to upright position. Reviewed need for good hydration, use caution going from laying to sitting to standing. Sit /lay down if she feels lightheaded. Emergency care if needed for recurrent events. Orders: Orders ECG 3 day holter monitor 01/29/23 R55 - Syncope and collapse CA echo transthoracic complete 01/29/23 R06.02 - Shortness of breath, R07.89 - O ther chest pain CA stress test 01/29/23 R06.02 - Shortness of breath, R07.89 - Other chest pain Coding Level of Care Code New Pt Level 4 (18751) Diagnoses Chest discomfort R07.89 Shortness of breath R06.02 Hypertension, unspecified type I10 Hypertension type: unspecified Syncope R55 Time Spent (min) 30
[2023-01-29 14:57] VITALS: BP 100/72; PULSE 73; BMI 29.5
== END 2023-01-29 15:27 | disposition home or self-care (01) ==
PROVIDERS: PCP Internal Medicine; Visit Provider Nurse Practitioner Family
DX: R07.89 Other chest pain (principal); R06.02 Shortness of breath; I10 Essential (primary) hypertension; R55 Syncope and collapse
CPT/HCPCS: 99204

== ENCOUNTER → 2023-01-29 14:18 | Outpatient (BNVA) | payer MEDICARE, MEDICAID, SELFPAY | PROVIDERS: PCP Internal Medicine; Visit Provider Nurse Practitioner Family ==

== ENCOUNTER → 2023-02-23 08:37 | Outpatient (REF) | payer MEDICARE, MEDICAID, SELFPAY ==
--- NOTE | 2023-02-23 08:40 | HM_ITS ---
Conclusion: 1. Patient was monitored for total period of 2 days and 23 hours 2. Baseline was normal sinus with average heart of 69 beats per minute 3. No significant pauses or arrhythmias noted 4. No patient reported symptoms MTDD
--- NOTE | 2023-02-23 08:40 | CA_ITS ---
Acquisition Time: 2023-02-23 09:52:21 Total Exercise Time: 00:07:26 Test Indications: Chest Pain Medications: Alprazolam Aripirazole Atorvastain Bupropion Singulai Pantoprazole Trazodone Protocol: JAY JAY Max HR: 144 BPM 86% of Pred: 167 BPM Max BP: 104/058 mmHG Max Work Load: 9.1 METS Exercise stress test exercise 7 min 26 sec of Jay Jay protocol achieving 86% MPHR, with 3/10 left sided chest pressure, mild SOB. without arrhythm,ias, with BP max BP 104/58. resting 100/64 sitting and standing 94/70, without EKG changes. Chest pain resolved with rest. Test reviewed with Dr. Manley. Referred By: Deepika Becerril Overread By: Tiffany Abebe
--- NOTE | 2023-02-23 08:40 | CA_ITS ---
Transthoracic Echocardiogram Patient (Last, First, Middle): Melissa Hanson, Gender: Female Date of : 1970 Age: 52 Procedure Date: 02/23/2023 Procedure Type: Transthoracic Echocardiogram Location: OP Height: 157.48 cm Weight: 70.31 kg BSA: 1.72 m2 Heart Rate: 54 bpm BP: 98 / 65 mmHg Tow Feeder: JESSICA Referring MD: Deepika Becerril MAKE UP GIRL-C Symptoms: R07.89 - Other chest pain Study Quality: Fair ECG Rhythm: Bradycardia Conclusions: - The left ventricular systolic function is normal. The calculated ejection fraction is 58% by biplane method. - No obvious valvular pathology seen on this study. Findings Left Ventricle Normal left ventricular cavity size. There is normal left ventricular wall thickness. The left ventricular systolic function is normal. The calculated ejection fraction is 58% by biplane method. There is no evidence of regional wall motion abnormalities. Diastolic function is normal for age. LV peak GLS -18.7%. Right Ventricle Normal right ventricular cavity size and systolic function. Atria Both atria are normal in size. Aortic Valve There is a normal trileaflet aortic valve. There is no aortic valve stenosis. There is no aortic valve regurgitation. Mitral Valve The mitral valve appears normal. There is trace mitral valve regurgitation. There is no mitral valve stenosis. Pulmonic Valve The pulmonic valve is likely normal. Tricuspid Valve There is mild tricuspid valve regurgitation. There is no evidence of pulmonary hypertension. Great Vessels The asc aorta is normal in size. Venous The inferior vena cava is mildly dilated and collapses greater than 50% with inspiration. Pericardium/Pleural There is no evidence of pericardial effusion. Prior Study Comparison No prior study available for comparison. Recommendations, Care & Conclusions No obvious valvular pathology seen on this study. Measurements 2D Linear Measurements IVSd: 0.80 0.6-0.9/0.6-1.0 cm LVIDd: 4.46 3.9-5.3/4.2-5.9 cm LVIDd Index: 2.59 2.4-3.2/2.2-3.1 cm/m2 LVIDs: 2.87 2.0-3.6 cm LVPWd: 0.96 0.7-1.1 cm Ao Root: 3.20 2.1-3.5 cm LA Diam: 3.30 2.7-3.8/3.0-4.0 cm LAIDs Index: 1.92 1.5-2.3 cm/m2 LV Mass: 157.88 67-162/88-224 g LV Mass Index: 91.79 43-95/49-115 g/m2 LVOT Diam: 1.70 3.0+(-)1.3 cm 2D Systolic Function EF 4C: 59.00 >55% EF 2C: 58.30 >55% EF BiP: 58.40 >55% Mitral Valve MV Pk E: 0.93 MV PK A: 0.75 MV Decel Time: 203.00 E/A: 1.20 E'Lateral: 14.40 E'Medial: 10.00 E/E' Med: 9.30 E/E' Lat: 6.40 PHT: 59.00 MVA PHT: 3.73 Decel Harding: 4.57 Aortic Valve AoV Pk Red: 1.03 AoV Mn Red: 0.73 AoV VTI: 0.25 AoV Pk Grad: 4.00 Aov Mn Grad: 2.00 MALENA Cont.VTI: 1.86 LVOT LVOT Pk Red: 0.89 LVOT Mn Red: 0.59 LVOT VTI: 0.21 LVOT Pk Grad: 3.00 LVOT Mn Grad: 2.00 LVOT Diam: 1.70 LVOT Area: 2.27 Diastolic Function MV Pk E: 0.93 MV Pk A: 0.75 E/A: 1.20 E'Medial: 10.00 E/E' Med: 9.30 E' Laterial: 14.40 E/E' Lat: 6.40 Right Ventricle TAPSE (mm): 23.00 TVS' Red: 7.90 Tricuspid Valve TR Pk Red: 2.23 TR Pk Grad: 20.00 RA Press: 8.00 RVSP: 28.00 Great Vessels Aorta Ao Root-2D: 3.20 2.0-3.7 cm Sinus of Valsalva: 3.20 2.0-3.5 cm Ao Asc: 3.00 2.1-3.4 cm Pulmonary Valve PV Pk Red: 0.66 Peak PV Grad: 2.00 Updated in Other Vendor System with Status of Final Po Manley MD electronically signed on 02/24/2023 1:55:16 PM with status of Final
== END ==
LOC: HO.CARD 08:37
PROVIDERS: PCP Internal Medicine; Visit Provider Nurse Practitioner Family
DX: R07.89 Other chest pain (principal); R06.02 Shortness of breath; R55 Syncope and collapse
CPT/HCPCS: 93017; 93242; 93306; 93356

== ENCOUNTER → 2023-02-23 08:40 | Outpatient (BNV) | payer MEDICARE, MEDICAID, SELFPAY | PROVIDERS: PCP Internal Medicine; Visit Provider Nurse Practitioner | DX: R07.89 Other chest pain (principal); R55 Syncope and collapse | CPT/HCPCS: 93016; 93018; 93244; 93306 ==

== ENCOUNTER 2023-03-05 13:14 | Outpatient (AMB) | payer MEDICARE, MEDICAID, SELFPAY ==
--- NOTE | 2023-03-05 13:33 | MHC.OFFVIS ---
Intake Vital Signs 03/05/23 13:34 Height 5 ft 2 in Weight 163 lb 9.328 oz BMI 29.9 BP 114/72 Blood Pressure Location Lt brachial Position Sitting Pulse 72 Pulse Source Pulse Oximeter Intake Visit Reasons: 5W follow up Intake Note: pt having some chest pain Services Host Required: No Seating And Mobility Technologist: Seating And Mobility Technologist Present Accompanied by: Significant Other Allergies Penicillins Allergy (Verified 03/05/23 13:36) Hives Medication List - Last Reconciled 03/05/23 by Deepika Becerril, PROFESSOR OF ENVIRONMENTAL STUDIES-C alprazolam mg PO aripiprazole 5 mg PO DAILY atorvastatin 10 mg PO DAILY bupropion HCl 300 mg PO DAILY montelukast 10 mg PO DAILY pantoprazole 40 mg PO DAILY trazodone 150 mg PO BEDTIME HPI 5W follow up HPI Details Melissa is a 52-year-old female with past medical history of hyperlipidemia, pre diabetes who was recently seen in the emergency room for chest discomfort. She ruled out for ACS. She was reefed offered to cardiology in follow-up. On last visit a stress test and echocardiogram were ordered. Today she reports that she still gets intermittent stabbing pains in the left chest region which occur randomly lasting several minutes before resolving. This symptom has been occurring on and off for the last 1-2 years. She does not feel it is getting worse overall. At time she will notice some shortness of breath. Her symptom is usually randomly however she did have chest discomfort at the time of her stress test. No palpitations, presyncope, PND, orthopnea or edema. She has had no recurrent syncopal episodes since prior to last visit. Taking all meds as directed. is present. [facility] Family History Mother Tachycardia Paternal Grandmother No problems noted. Alcohol intake: never Patient Tobacco Use Status: Never used Tobacco Review of Systems Const All systems reviewed & are unremarkable except as noted in HPI and below ENT Reports dizziness Card Reports chest pain, Reports chest pain at rest, Reports chest pain with activity, Denies rapid heart rate, Denies pedal edema, Denies edema, Denies leg edema, Denies lightheadedness, Denies palpitations, Denies dyspnea, Denies dyspnea on exertion and Denies orthopnea Resp Denies cough, Denies dyspnea and Denies dyspnea on exertion GI Denies hematochezia and Denies change in stool character Musc Denies abnormal gait, Denies limited range of motion, Denies muscle cramps, Denies muscle weakness, Denies numbness, Denies radiating pain into limb, Denies stiffness and Denies tingling Neuro Denies abnormal gait, Reports dizziness, Denies numbness and Denies tingling Endo Denies palpitations Physical Exam Vital Signs: Last Vital Signs Pulse 72 03/05/23 13:34 BP 114/72 03/05/23 13:34 BMI result Body Mass Index 29.9 Const General: cooperative, healthy appearing, comfortable and no acute distress Orientation/consciousness: patient oriented x3 Neck Neck: Yes normal visual inspection Resp Effort & Inspection: normal respiratory effort Auscultation: clear to auscultation bilaterally, no crackles, no rales, no rhonchi and no wheezes Cardio Jugular venous distension: no JVD Rate: regular rate Rhythm: regular rhythm Heart sounds: S1 normal heart sound present, S2 normal heart sound present, no murmurs and no rubs Neuro General: patient oriented x3 Extrem General: Yes normal to inspection and No no pedal edema Psych Appearance: grossly normal Mental Status: mental status grossly normal Speech and movement: Normal speech and movement present Assessment & Plan Assessment & Plan (1) Chest discomfort: Code(s): R07.89 - Other chest pain Plan: Reports of chest discomfort, atypical sounding. Sharp pain that happens randomly with associated shortness of breath, occurring on and off for the last 1-2 years. ER evaluation on 12/26/2022 for this symptom. She ruled out for ACS. EKG showing normal sinus rhythm, no acute ST or T-wave abnormalities. Troponin levels normal. Cardiac risks of hyperlipidemia, pre diabetes and mild obesity. No known cardiac history. An exercise stress test was done on 02/23/2023 with exercise 7-1/2 minutes achieving 86% mphr, 3/10 left chest discomfort, no EKG changes. Echocardiogram done 02/23/2023 showed EF 58%, no regional wall motion abnormalities and normal valves. Today she continues to report having her same symptoms. She says the discomfort she had at the stress test was the chest discomfort she is telling us about. A stress echocardiogram is already ordered to further evaluate for ischemia. Plan to call her with test results once available. If test is normal then no findings that her chest discomfort is cardiac in nature. If stress test is abnormal then further evaluation may be warranted. Cardiology follow-up to be determined. Signs and symptoms of angina reviewed. Emergency care if needed for symptoms. (2) Shortness of breath: Code(s): R06.02 - Shortness of breath (3) HTN (hypertension): Code(s): I10 - Essential (primary) hypertension Qualifiers: Hypertension type: unspecified Qualified Code(s): I10 - Essential (primary) hypertension Plan: Normal range today (4) Syncope: Code(s): R55 - Syncope and collapse Plan: On last visit patient describes a syncopal event approximally 2 weeks prior.. She says she got up out of bed in the night to use the bathroom and found herself on the floor. She was experiencing some lightheadedness prior to the event. She has never had syncope in the past. She did not recall any heart palpitations. Her blood pressure is on the low side last visit. Blood pressure when she was in the emergency room was normal range. Echocardiogram completed as above. Holter monitor done on 02/23/2023 for 3 days shows sinus rhythm with average heart rate 69, no pauses or arrhythmia noted. Her event was most likely related to orthostatic hypotension which occurred after getting from laying down position to upright position. Reviewed need for good hydration, use caution going from laying to sitting to standing. Sit /lay down if she feels lightheaded. Emergency care if needed for recurrent events. Coding Level of Care Code Est Pt Level 3 (23161) Diagnoses Chest discomfort R07.89 Shortness of breath R06.02 Hypertension, unspecified type I10 Hypertension type: unspecified Syncope R55 Time Spent (min) 24
[2023-03-05 13:34] VITALS: BP 114/72; PULSE 72; BMI 29.9
== END 2023-03-05 14:02 | disposition home or self-care (01) ==
PROVIDERS: PCP Internal Medicine; Visit Provider Nurse Practitioner Family
DX: R07.89 Other chest pain (principal); R06.02 Shortness of breath; I10 Essential (primary) hypertension; R55 Syncope and collapse
CPT/HCPCS: 99213

== ENCOUNTER → 2023-03-05 13:14 | Outpatient (BNVA) | payer MEDICARE, MEDICAID, SELFPAY | PROVIDERS: PCP Internal Medicine; Visit Provider Nurse Practitioner Family | DX: R07.89 Other chest pain (principal); R06.02 Shortness of breath; I10 Essential (primary) hypertension; R55 Syncope and collapse | CPT/HCPCS: 99212 ==

== ENCOUNTER → 2023-03-06 10:45 | Outpatient (REF) | payer MEDICARE, MEDICAID, SELFPAY ==
--- NOTE | 2023-03-06 10:47 | CA_ITS ---
Acquisition Time: 2023-03-06 10:54:09 Total Exercise Time: 00:07:53 Test Indications: CP, SOB Medications: SEE H Protocol: JAY JAY Max HR: 150 BPM 89% of Pred: 167 BPM Max BP: 118/050 mmHG Max Work Load: 9.9 METS Exercise stress test exercise 7 min 53 sec of Jay Jay protocol achieving 90% MPHR, with mild ro moderate SOB, no chest discomfort, without arrhythmia noted through artifact PAC seen in recovery, with normotensive response to exercise, without EKG changes. Echo images obtained by tech at rest and immedately post peak exercise, Definity contrast used. Test reviewed with Dr. Allred. Referred By: Deepika Becerril Overread By: Tiffany Abebe
== END ==
LOC: HO.CARD 10:45
PROVIDERS: PCP Internal Medicine; Visit Provider Nurse Practitioner Family
DX: R07.89 Other chest pain (principal); R55 Syncope and collapse; R94.30 Abnormal result of cardiovascular function study, unspecified
CPT/HCPCS: 93350; Q9957

== ENCOUNTER → 2023-03-06 10:47 | Outpatient (BNV) | payer MEDICARE, MEDICAID, SELFPAY | PROVIDERS: PCP Internal Medicine; Visit Provider Nurse Practitioner | DX: R06.02 Shortness of breath (principal) | CPT/HCPCS: 93016; 93018; 93350; 93352 ==